=== PATIENT | female | born 1965 | race Caucasian/White ===

== ENCOUNTER 2022-06-04 07:39 | Day surgery (SDC) | payer BC, SELFPAY ==
--- NOTE | 2022-03-01 11:56 | HO.ANESPROP2 ---
HPI - Anesthesia Eval Consult details Narrative: 56yo F for Upper Endoscopy PMFSH Active Problems Active Problems: All Active Problems (Updated 03/01/22 @ 11:03 by Henna Francois RN) Easy bruisability (Acute) Past Medical History Medical History Anxiety Celiac disease COPD (chronic obstructive pulmonary disease) Depression GERD (gastroesophageal reflux disease) History of panic disorder Hypokalemia IBS (irritable bowel syndrome) Lower extremity edema Palpitations PTSD (post-traumatic stress disorder) Smoker Family History Family History (Updated 10/20/20 @ 11:23 by Kamryn Hart) Paternal Grandmother Rectal cancer Paternal Grandfather Cancer Father COPD (chronic obstructive pulmonary disease) Emphysema lung Brother Stroke Mother Heart disease HTN (hypertension) High cholesterol Maternal Grandmother Heart disease Maternal Grandfather Heart disease Sister High cholesterol Sister High cholesterol Surgical History Surgical History (Updated 10/20/20 @ 11:36 by Amanda Carballo MD) Hx of appendectomy Hx of colonoscopy Hx of hernia repair Hx of inguinal hernia repair Social History Social History (Updated 10/20/20 @ 11:18 by Kamryn Hart) Alcohol intake: current Alcohol intake frequency: a few times a week Alcohol type: other Patient Tobacco Use Status: Current everyday Tobacco user Tobacco use type: Cigarette Meds Allergies Allergy/AdvReac Type Severity Reaction Status Date / Time No Known Allergies Allergy Verified 10/20/20 11:23 Home Medications Medication Instructions Recorded Confirmed Last Taken Type albuterol sulfate 90 mcg/actuation 2 puff PO QID PRN wheezing 10/20/20 10/20/20 Unknown History aerosol inhaler alprazolam 0.25 mg tablet 1 tab PO DAILY PRN Anxiety 10/20/20 10/20/20 Unknown History cephalexin 500 mg capsule 500 mg PO QID 10/20/20 10/20/20 Unknown History cholecalciferol (vitamin D3) 125 125 mcg PO DAILY 10/20/20 10/20/20 Unknown History mcg (5,000 unit) tablet (Vitamin D3) cyanocobalamin (vitamin B-12) 1 tab PO DAILY 10/20/20 10/20/20 Unknown History 1,000 mcg tablet folic acid 1 mg tablet 1 tab PO DAILY 10/20/20 10/20/20 Unknown History furosemide 20 mg tablet 1 tab PO DAILY 10/20/20 10/20/20 Unknown History nicotine 21 mg/24 hr daily 1 patch topical DAILY 10/20/20 10/20/20 Unknown History transdermal patch potassium chloride 10 mEq 10 meq PO DAILY 10/20/20 10/20/20 Unknown History capsule,extended release sertraline 25 mg tablet 1 tab PO DAILY 10/20/20 10/20/20 Unknown History sulfamethoxazole 800 1 tab PO BID 10/20/20 10/20/20 Unknown History mg-trimethoprim 160 mg tablet (Bactrim DS) vitamin A 2,400 mcg capsule 2,400 mcg PO DAILY 10/20/20 10/20/20 Unknown History amitriptyline 25 mg tablet 1 tab PO BEDTIME 03/01/22 03/01/22 Unknown History buspirone 10 mg tablet 1 tab PO BID 03/01/22 03/01/22 Unknown History gabapentin 300 mg capsule 1 cap PO BEDTIME 03/01/22 03/01/22 Unknown History [id number] cap PO 03/01/22 Unknown History 24,000-76,000-120,000 unit capsule,delayed rel (Creon) nirmatrelvir 300 mg (150 mg 3 tab PO BID 03/01/22 03/01/22 Unknown History x2)-ritonavir 100 mg tablet,dose pack(EUA) (Paxlovid) Exam Exam Date and Time: March 01, 2022 1156 Assessment and Plan Assessment Anesthesia Assessment: Chart Reviewed
[2022-06-04 08:18] VITALS: BMI 20.4
--- NOTE | 2022-06-04 08:20 | HO.ANESPROP2 ---
HPI - Anesthesia Eval Consult details Narrative: colonoscopy PMFSH Active Problems Active Problems: All Active Problems (Updated 03/01/22 @ 11:03 by Henna Francois RN) Easy bruisability (Acute) Past Medical History Medical History Anxiety Celiac disease COPD (chronic obstructive pulmonary disease) Depression GERD (gastroesophageal reflux disease) History of panic disorder Hypokalemia IBS (irritable bowel syndrome) Lower extremity edema Palpitations PTSD (post-traumatic stress disorder) Smoker Family History Family History (Updated 10/20/20 @ 11:23 by Kamryn Hart) Paternal Grandmother Rectal cancer Paternal Grandfather Cancer Father COPD (chronic obstructive pulmonary disease) Emphysema lung Brother Stroke Mother Heart disease HTN (hypertension) High cholesterol Maternal Grandmother Heart disease Maternal Grandfather Heart disease Sister High cholesterol Sister High cholesterol Family history of problems with anesthesia: No Surgical History Surgical History Hx of appendectomy Hx of colonoscopy Hx of hernia repair Hx of inguinal hernia repair History of Problems with Anesthesia: No Social History Social History (Updated 10/20/20 @ 11:18 by Kamryn Hart) Alcohol intake: current Alcohol intake frequency: a few times a week Alcohol type: other Patient Tobacco Use Status: Current everyday Tobacco user Tobacco use type: Cigarette Advance Directives: No Advance Directives Information Provided: Yes Meds Allergies Allergy/AdvReac Type Severity Reaction Status Date / Time No Known Allergies Allergy Verified 10/20/20 11:23 Home Medications Medication Instructions Recorded Confirmed Last Taken Type albuterol sulfate 90 mcg/actuation 2 puff PO QID PRN wheezing 10/20/20 10/20/20 Unknown History aerosol inhaler alprazolam 0.25 mg tablet 1 tab PO DAILY PRN Anxiety 10/20/20 10/20/20 Unknown History cephalexin 500 mg capsule 500 mg PO QID 10/20/20 10/20/20 Unknown History cholecalciferol (vitamin D3) 125 125 mcg PO DAILY 10/20/20 10/20/20 Unknown History mcg (5,000 unit) tablet (Vitamin D3) cyanocobalamin (vitamin B-12) 1 tab PO DAILY 10/20/20 10/20/20 Unknown History 1,000 mcg tablet folic acid 1 mg tablet 1 tab PO DAILY 10/20/20 10/20/20 Unknown History furosemide 20 mg tablet 1 tab PO DAILY 10/20/20 10/20/20 Unknown History nicotine 21 mg/24 hr daily 1 patch topical DAILY 10/20/20 10/20/20 Unknown History transdermal patch potassium chloride 10 mEq 10 meq PO DAILY 10/20/20 10/20/20 Unknown History capsule,extended release sertraline 25 mg tablet 1 tab PO DAILY 10/20/20 10/20/20 Unknown History sulfamethoxazole 800 1 tab PO BID 10/20/20 10/20/20 Unknown History mg-trimethoprim 160 mg tablet (Bactrim DS) vitamin A 2,400 mcg capsule 2,400 mcg PO DAILY 10/20/20 10/20/20 Unknown History amitriptyline 25 mg tablet 1 tab PO BEDTIME 03/01/22 03/01/22 Unknown History buspirone 10 mg tablet 1 tab PO BID 03/01/22 03/01/22 Unknown History gabapentin 300 mg capsule 1 cap PO BEDTIME 03/01/22 03/01/22 Unknown History [id number]-[id number] cap PO 03/01/22 Unknown History 24,000-76,000-120,000 unit capsule,delayed rel (Creon) nirmatrelvir 300 mg (150 mg 3 tab PO BID 03/01/22 03/01/22 Unknown History x2)-ritonavir 100 mg tablet,dose pack(EUA) (Paxlovid) Exam Exam Date and Time: June 04, 2022 0820 Airway Mallampati Class: II TM Dist: >3cm Neck ROM: Full Heart: rrr Lungs: cta Assessment and Plan Assessment Anesthesia Assessment: Anesthesia Plan Discussed and Chart Reviewed Final Anesthetic Review Family History of Problems with Anesthesia: No History of Problems with Anesthesia: No NPO: Yes ASA Class: III Final Preanesthetic Review: No Changes in Pt Med Stat, Meds/Allgs Chart Reviewed, Consent Obtained/Reviewed and Anes Risks/Benef Reviewed Patient Risk: Intermediate Procedure Risk: Low Anesthetic Plan Anesthetic Plan: MAC: Disposition: Standard PACU
[2022-06-04 08:23] VITALS: BP 99/61; PULSE 62; RESP 18; TEMP 36.8; O2SAT 99
[2022-06-04 08:25] VITALS: BMI 20.4
[2022-06-04] MEDS: Lactated Ringers 500 ML 20 ML IVCONT (08:28)
--- NOTE | 2022-06-04 08:48 | P.HPSUR_ITS ---
Pre-Procedural Eval Section A Date of Service: 06/04/22 Section B Chief Complaint: Abnormal findings on diagnostic imaging of other a Details of Present Illness: see H*P no changes Relevant Family History (Specify if Yes): No Relevant Social History: None Present Medications: see Short Stay Collaborative assessment Medical History: No relevant PMH History of Previous Operations: No relevant previous surgery Allergies: Allergies Allergy/AdvReac Type Severity Reaction Status Date / Time No Known Allergies Allergy Verified 10/20/20 11:23 Review of Systems Sugical H&P ROS: Negative: Constitution, Cardiovascular, Respiratory, Neurol ogical, Psychiatric, Hem-Onc, Allergic/Immunologic, Gastrointestinal, Genitourinary, Musculoskeletal, Integumentary, Endocrine and Eyes/Ears/Nose/Throat Exam Surgical H&P Exam: Normal: HEENT, Normal: Heart, Normal: Lungs, Normal: Extremities, Normal: Abdomen, Normal: Skin and Normal: Neurological Plan Diagnosis/Plan: Unchanged I have reviewed the history and physical and performed a pertinent physical examination on my patient. No changes have occurred unless specified. Time Spent With Patient Time: Total time managing care of this patient today ____ minutes.
[2022-06-04 09:15] VITALS: BP 119/60; PULSE 82; RESP 16; TEMP 36.1; O2SAT 96
--- NOTE | 2022-06-04 09:15 | PM.OP ---
Brief Operative Note Date of Service: 06/04/22 Pre-op diagnosis: abnl ct scan stomach Post-op diagnosis: same Surgeon: Claudio Menendez Anesthesia: MAC Was an Warehouse [employer] used for this Procedure?: No Estimated blood loss (mL): 5 Pathology: other Condition: stable Disposition: PACU
[2022-06-04 09:30] VITALS: BP 118/68; PULSE 74; RESP 16; O2SAT 96
--- NOTE | 2022-06-04 09:38 | OP_ITS ---
DATE OF SERVICE: 06/04/2022 SURGEON: Claudio Menendez MD INDICATIONS: Abnormal CT scan of the stomach. PREOPERATIVE DIAGNOSIS: POSTOPERATIVE DIAGNOSIS: PROCEDURE PERFORMED: Upper endoscopy with biopsy. ESTIMATED BLOOD LOSS: COMPLICATIONS: ANESTHESIA: Monitored anesthesia care. ASSISTANTS: SPECIMENS: DESCRIPTION OF PROCEDURE: A history and physical performed. The risks and benefits of the procedure were explained to the patient. Informed consent was obtained. The patient was placed in the left lateral decubitus position. The Olympus video gastroscope was introduced into the esophagus, stomach, and duodenum. Examination was performed. The scope was removed. She tolerated the procedure well and was returned to recovery are in stable condition. FINDINGS: Esophagus: The esophagus was normal. There were no varices. There was an irregular EG junction. Biopsies were obtained from the EG junction. Stomach: The stomach showed no evidence of masses, ulcers, or polyps. There was no portal hypertensive gastropathy. Biopsies were obtained from the antrum. The pylorus appeared normal. Duodenum: There were changes consistent with celiac disease with some scalloping of the duodenal folds. Biopsies were obtained from the 2nd portion. IMPRESSION: Celiac sprue. RECOMMENDATION: Follow up the biopsy results. MD HARSH Rinaldi/NESTOR / [id number]
[2022-06-04 09:45] VITALS: BP 121/66; PULSE 70; RESP 16; TEMP 37; O2SAT 97
== END 2022-06-04 10:03 | disposition home or self-care (01) ==
PROVIDERS: PCP Nurse Practitioner Adult Health; Visit Provider Internal Medicine Gastroenterology
PROC: 0DJ08ZZ Inspection of Upper Intestinal Tract, Via Natural or Artificial Opening Endoscopic (ICD-10-PCS; CPT 43235; principal; 2022-06-04 08:50)
DX: R93.5 Abnormal findings on diagnostic imaging of other abdominal regions, including retroperitoneum (principal); K90.0 Celiac disease; K58.9 Irritable bowel syndrome, unspecified; K21.9 Gastro-esophageal reflux disease without esophagitis; R23.3 Spontaneous ecchymoses; R60.0 Localized edema; J44.9 Chronic obstructive pulmonary disease, unspecified; E87.6 Hypokalemia; R00.2 Palpitations; F32.A Depression, unspecified; F41.1 Generalized anxiety disorder; F43.10 Post-traumatic stress disorder, unspecified; Z79.899 Other long term (current) drug therapy; F17.210 Nicotine dependence, cigarettes, uncomplicated
CPT/HCPCS: 43239; 88305; 88342

== ENCOUNTER → 2023-11-11 10:16 | Outpatient (RCR) | payer BC, SELFPAY ==
[2020-10-20 11:05] VITALS: BP 130/66; PULSE 70; RESP 16; TEMP 36.7; O2SAT 99; BMI 18.8
--- NOTE | 2020-10-20 11:36 | P.CNHO_ITS ---
Subjective - Subjective Chief complaint: Easy skin bruising Patient: new to practice Consult date: 10/23/20 Primary Care Provider: Ronald Dennis NP HPI - Consult Narrative Reason for consult: Easy skin bruising Narrative: Johnna Dobson is a 55 year old female with history of celiac disease, liver disease and extreme weight loss who is presenting with easy skin bruising. For the last 2 years she says that she bruises quite easily. She is being treated currently for cellulitis of her left lower extremity. She is on antibiotics. She does not take any NSAIDs or aspirin. She has no history of bleeding disorder and has had multiple surgeries in the past without any bleeding complications. She has a history of chronic alcoholism, she is now trying to quit. Although she did drink even last night. She had workup at [facility] including CT scan of abdomen and liver ultrasound both of which showed fatty liver. Her blood counts are normal including platelet counts. Her albumin levels are severely depressed. At this time apart from easy skin bruising she has no complaints such as chest pain, shortness of breath, nausea or emesis. No hematochezia melena, no change in bowel habits. She denies any recent infections. She did not receive COVID- 19 vaccination. Review of Systems - Constitutional Reports as per HPI, Reports no additional constitutional complaints - Cardiovascular Reports no additional cardiovascular complaints - Respiratory Reports no additional respiratory complaints - Gastrointestinal Reports no additional gastrointestinal complaints - Integumentary/Breasts Skin/Breast: Reports unusual bruising PMFSH Medical History: Medical History (Last Updated 10/20/20 @ 11:18 by Kamryn Hart) Anxiety Celiac disease COPD (chronic obstructive pulmonary disease) Depression History of panic disorder Hypokalemia Lower extremity edema Palpitations Family History: Family History (Last Updated 10/20/20 @ 11:23 by Kamryn Hart) Paternal Grandmother Rectal cancer Paternal Grandfather Cancer Father COPD (chronic obstructive pulmonary disease) Emphysema lung Brother Stroke Mother Heart disease HTN (hypertension) High cholesterol Maternal Grandmother Heart disease Maternal Grandfather Heart disease Sister High cholesterol Sister High cholesterol Surgical History: Surgical History (Last Updated 10/20/20 @ 11:18 by Kamryn Hart) Hx of appendectomy Hx of colonoscopy Hx of hernia repair Hx of inguinal hernia repair Social History: Social History (Last Updated 10/20/20 @ 11:18 by Kamryn Hart) Alcohol History: Alcohol intake: current Alcohol History Details: Alcohol intake frequency: a few times a week Alcohol type: other Tobacco History: Patient Tobacco Use Status: Current everyday Tobacco Tobacco use type: Cigarette Substance Use History: Use of substances other than those prescribed or required for medical reasons : No Home Medications and Allergies Home Medications Medication Instructions Recorded Confirmed Type albuterol sulfate 90 mcg/actuation 2 puff PO QID PRN 10/20/20 10/20/20 History aerosol inhaler alprazolam 0.25 mg tablet 1 tab PO DAILY PRN 10/20/20 10/20/20 History cephalexin 500 mg capsule 500 mg PO QID 10/20/20 10/20/20 History cholecalciferol (vitamin D3) 125 125 mcg PO DAILY 10/20/20 10/20/20 History mcg (5,000 unit) tablet (Vitamin D3) cyanocobalamin (vitamin B-12) 1 tab PO DAILY 10/20/20 10/20/20 History 1,000 mcg tablet folic acid 1 mg tablet 1 tab PO DAILY 10/20/20 10/20/20 History furosemide 20 mg tablet 1 tab PO DAILY 10/20/20 10/20/20 History nicotine 21 mg/24 hr daily 1 patch TOPICAL DAILY 10/20/20 10/20/20 History transdermal patch potassium chloride 10 mEq 10 meq PO DAILY 10/20/20 10/20/20 History capsule,extended release sertraline 25 mg tablet 1 tab PO DAILY 10/20/20 10/20/20 History sulfamethoxazole 800 1 tab PO BID 10/20/20 10/20/20 History mg-trimethoprim 160 mg tablet (Bactrim DS) vitamin A 2,400 mcg capsule 2,400 mcg PO DAILY 10/20/20 10/20/20 History Allergies Allergy/AdvReac Type Severity Reaction Status Date / Time No Known Allergies Allergy Verified 10/20/20 11:23 Physical Exam Vital signs: Vital Signs Temp 98.0 F 10/20/20 11:05 Pulse 70 10/20/20 11:05 Resp 16 10/20/20 11:05 BP 130/66 10/20/20 11:05 Pulse Ox 99 10/20/20 11:05 Intake & Output 10/19/20 10/20/20 10/20/20 18:59 06:59 18:59 Other: Weight 49.7 kg Weight in Grams [id number] Weight 49.7 kg - Constitutional Present: no acute distress, cachectic, chronically ill appearing - Routine HEENT Exam Head: Present: normal inspection Eye: Present: normal appearance - Routine Neck Exam Present: supple. Absent: lymphadenopathy - Routine Chest/Breast/Axilla Exam Chest wall: Absent: mass Breast: Absent: swelling Axillae: Absent: lymphadenopathy - Routine Respiratory Exam Present: CTAB. Absent: accessory muscle use - Routine Cardiovascular Exam Cardiovascular: Present: RRR, S1, S2 - Routine Abdominal Exam Present: soft - Routine Extremities Exam Present: calf tenderness, pedal edema Comments: Bilateral swelling with erythema of left lower leg. - Routine Skin Exam Present: erythema, ecchymosis - Routine Neurological Exam Present: alert, oriented X3 Hem/Onc Consult Result - Labs Labs: Laboratory Tests 10/20/20 10/20/20 12:37 12:37 PT 12.0 INR 1.1 APTT 36.4 Fibrinogen 217 L Total Bilirubin 0.2 Direct Bilirubin 0.2 AST 114 H ALT 147 H Alkaline Phosphatase 222 H Total Protein 5.0 L Albumin 2.6 L Assessment and Plan (1) Easy bruisability Status: Acute 1. This is a 55-year-old woman with celiac disease, chronic alcoholism and weight loss presenting with easy skin bruising. This has been going on for about 2 years. She has no past history of bleeding or bruising and has tolerated multiple surgical procedures and teeth extractions without excessive bleeding. Her platelet counts are normal, she is not anemic and she is not on medications that can cause easy skin bruising. She has significant liver disease, hypoalbuminemia and mild hypofibrinogenemia related to liver disease and probably celiac disease. This can cause easy skin bruising related to capillary fragility. I have advised the patient about abstaining from alcohol and improving her nutrition. Based on her blood work so far I do not suspect any other underlying hematological or oncological problems. I thank you for this consultation.
[2020-10-20 13:03] LABS: Fibrinogen 217 MG/DL (259-690); INTERNATIONAL NORM RATIO 1.1 (0.9-1.1)
[2020-10-20 13:06] LABS: Partial Thromboplastin Time 36.4 SEC (24.1-38.0)
[2020-10-20 13:27] LABS: Alanine Aminotransferase 147 U/L (0-31); Albumin Level 2.6 g/dL (3.5-5.0); Alkaline Phosphatase 222 U/L (39-117); Aspartate Amino Transferase 114 U/L (5-31); Bilirubin Direct 0.2 mg/dL (0.0-0.5); Bilirubin Total 0.2 mg/dL (0.0-1.0)
[2020-10-23 14:52] LABS: Prot Elec - Albumin 2.4 g/dL (3.8-4.8); Prot Elec - Alpha1 0.4 g/dL (0.2-0.3); Prot Elec - Alpha2 0.6 g/dL (0.5-0.9); Prot Elec - Beta 1 0.2 g/dL (0.4-0.6); Prot Elec - Beta 2 0.4 g/dL (0.2-0.5)
[2020-10-25 15:26] LABS: IgA 424 mg/dL (47-310); IgG 965 mg/dL (600-1640); IgM 124 mg/dL (50-300)
== END | disposition home or self-care (01) ==
LOC: HO.ONC 10-20 10:49
PROVIDERS: PCP Nurse Practitioner Family; Referring Provider Nurse Practitioner Family; Visit Provider Internal Medicine
DX: R23.3 Spontaneous ecchymoses (principal); K90.0 Celiac disease; K76.9 Liver disease, unspecified; F10.20 Alcohol dependence, uncomplicated
CPT/HCPCS: 36415; 80076; 82784; 84165; 85384; 85610; 85730; 86334